=== PATIENT | female | born 1950 | race Caucasian/White ===

== ENCOUNTER → 2016-07-14 | Outpatient (CLI) | payer MEDICARE, OTHER ==
[2016-07-14 11:17] LABS: BUN/CREATININE RATIO 11 (0-10)
== END ==
PROVIDERS: Physician Assistant
DX: I10 Essential (primary) hypertension (principal); Z88.8 Allergy status to other drugs, medicaments and biological substances; Z91.041 Radiographic dye allergy status; Z88.5 Allergy status to narcotic agent
CPT/HCPCS: 36415; 80048

== ENCOUNTER → 2020-07-31 | Day surgery (SDC) | payer MEDICARE ==
[~2020-07-31] MED LIST: AMLODIPINE BESYL5 MG PO; ANASTROZOLE1 MG PO; BUPROPION XL150 MG PO; CALCIUM 1,0001 EACH PO; CRESTOR40 MG PO; FAMOTIDINE40 MG PO; LEVOTHYROXINE75 MC1 PO; LISINOPRIL20 MG PO; MELOXICAM15 MG PO; NORCO 5-325 TA1 EACH PO; SPIRONOLACTONE25 MG PO; VITAMIN B-122000 MCG PO; VITAMIN D21250 MCG PO; [UNRECOGNIZED DRUG - OTHER] PO
== END | disposition home or self-care (01) ==
LOC: OR 06:00
PROVIDERS: Surgery
PROC: 0DJD8ZZ Inspection of Lower Intestinal Tract, Via Natural or Artificial Opening Endoscopic (ICD-10-PCS; principal; 2020-07-31 07:30)
DX: Z12.11 Encounter for screening for malignant neoplasm of colon (principal); K57.30 Diverticulosis of large intestine without perforation or abscess without bleeding; K21.9 Gastro-esophageal reflux disease without esophagitis; I10 Essential (primary) hypertension; E78.5 Hyperlipidemia, unspecified; E03.9 Hypothyroidism, unspecified; F17.210 Nicotine dependence, cigarettes, uncomplicated; Z20.822 Contact with and (suspected) exposure to COVID-19; Z88.5 Allergy status to narcotic agent; Z91.041 Radiographic dye allergy status; Z79.899 Other long term (current) drug therapy; Z87.19 Personal history of other diseases of the digestive system; Z86.73 Personal history of transient ischemic attack (TIA), and cerebral infarction without residual deficits
CPT/HCPCS: J2405; J2704; J7030

== ENCOUNTER → 2020-11-02 | Outpatient (CLI) | payer MEDICARE | LOC: LAB 13:37 | DX: E78.00 Pure hypercholesterolemia, unspecified (principal) | CPT/HCPCS: 36415; 80061; 80076 ==

== ENCOUNTER 2020-12-07 12:32 | Emergency (ER) | payer MEDICARE | END 2020-12-07 16:25 | disposition home or self-care (01) | LOC: ER1 12:32 | DX: M79.604 Pain in right leg (principal); M79.89 Other specified soft tissue disorders; I10 Essential (primary) hypertension; E78.5 Hyperlipidemia, unspecified; F17.290 Nicotine dependence, other tobacco product, uncomplicated; Z90.49 Acquired absence of other specified parts of digestive tract; Z90.710 Acquired absence of both cervix and uterus; Z91.041 Radiographic dye allergy status | CPT/HCPCS: 73590; 93971; 99283 ==

== ENCOUNTER → 2020-12-10 | Outpatient (CLI) | payer MEDICARE | LOC: LAB 16:02 | PROVIDERS: Internal Medicine Interventional Cardiology | DX: I12.9 Hypertensive chronic kidney disease with stage 1 through stage 4 chronic kidney disease, or unspecified chronic kidney disease (principal); N18.30 Chronic kidney disease, stage 3 unspecified | CPT/HCPCS: 36415; 80048 ==

== ENCOUNTER → 2021-03-24 | Outpatient (CLI) | payer MEDICARE | LOC: KOH-I 10:56 | DX: F17.210 Nicotine dependence, cigarettes, uncomplicated (principal) | CPT/HCPCS: 71271 ==

== ENCOUNTER → 2021-08-02 | Outpatient (CLI) | payer MEDICARE ==
[~2021-08-02] MED LIST changes: +DAILY VALUE1 EACH PO; +DICLOFENAC GEL 1% TOP; +LOW DOSE ASPIRI81 MG PO; +PROLIA INJ60 MG/1 ML INJ
== END ==
LOC: LAB 08:21
PROVIDERS: Orthopaedic Surgery
DX: Z01.812 Encounter for preprocedural laboratory examination (principal)
CPT/HCPCS: 36415; 80048; 86850; 86900; 86901

== ENCOUNTER 2021-08-03 04:45 | Observation (INO) | payer MEDICARE ==
[~2021-08-03] VITALS: Ht 167.6 cm; Wt 84.8 kg
[2021-08-04 09:28] LABS: HEMOGLOBIN 12.1 gm/dl (12.3-15.3); RED BLOOD COUNT 3.71 M/UL (4.00-5.10); WHITE BLOOD COUNT 17.1 K/UL (4.5-11.0)
[2021-08-05 07:06] LABS: HEMOGLOBIN 11.3 gm/dl (12.3-15.3); RED BLOOD COUNT 3.47 M/UL (4.00-5.10)
[2021-08-05 07:07] LABS: WHITE BLOOD COUNT 9.4 K/UL (4.5-11.0)
[2021-08-05] MEDS ORDERED: ATORVASTATIN CA10 MG PO (16:02)
[2021-08-06 04:56] LABS: HEMOGLOBIN 10.7 gm/dl (12.3-15.3); RED BLOOD COUNT 3.23 M/UL (4.00-5.10); WHITE BLOOD COUNT 10.4 K/UL (4.5-11.0)
[2021-08-06] MEDS ORDERED: ELIQUIS 2.5 MG2.5 MG PO (10:08)
[2021-08-06] MEDS ORDERED: HYDROCODON-ACE1 EAC2 PO (10:16)
== END 2021-08-06 13:24 | disposition home or self-care (01) ==
LOC: OR 04:45 → EDSTATUS 11:15 → OR 11:15 → M/S 11:55
PROVIDERS: Internal Medicine; ADMIT Orthopaedic Surgery
DX: M17.11 Unilateral primary osteoarthritis, right knee (principal); M21.061 Valgus deformity, not elsewhere classified, right knee; E78.5 Hyperlipidemia, unspecified; E03.9 Hypothyroidism, unspecified; I10 Essential (primary) hypertension; K21.9 Gastro-esophageal reflux disease without esophagitis; Z90.49 Acquired absence of other specified parts of digestive tract; Z90.710 Acquired absence of both cervix and uterus; Z79.01 Long term (current) use of anticoagulants; Z20.822 Contact with and (suspected) exposure to COVID-19; Z88.8 Allergy status to other drugs, medicaments and biological substances; Z88.5 Allergy status to narcotic agent; Z91.041 Radiographic dye allergy status
CPT/HCPCS: 36415; 73560; 76000; 80048; 85025; 85027; 97110-GP-CQ; 97116-GP-CQ; 97161; 97166; 97530; 97530-GP-CQ; 97535; C1776; G0378; J0171; J0690; J0735; J1100; J1170; J1885; J2274; J2405; J2704; J2795; J7050; J7120

== ENCOUNTER → 2021-11-11 | Outpatient (CLI) | payer MEDICARE ==
[~2021-11-11] MED LIST changes: +ATORVASTATIN CA10 MG PO; +ELIQUIS 2.5 MG2.5 MG PO; +HYDROCODON-ACE1 EAC2 PO
== END ==
LOC: KOH-I 15:52
DX: M79.661 Pain in right lower leg (principal); M79.89 Other specified soft tissue disorders
CPT/HCPCS: 93971

== ENCOUNTER → 2022-01-31 | Outpatient (CLI) | payer MEDICARE ==
[2022-02-02 05:12] LABS: CHOLESTEROL, TOTAL 154 mg/dL (100-199); HDL CHOLESTEROL 62 mg/dL (>39); LDL CHOLESTEROL CALC 79 mg/dL (0-99); LDL/HDL RATIO 1.3 ratio (0.0-3.2); T. CHOL/HDL RATIO 2.5 ratio (0.0-4.4); TRIGLYCERIDES 64 mg/dL (0-149)
== END ==
LOC: LAB 11:01
PROVIDERS: Internal Medicine Interventional Cardiology
DX: E78.00 Pure hypercholesterolemia, unspecified (principal)
CPT/HCPCS: 36415; 80061; 80076; 86141